=== PATIENT | female | born 2000 | race Caucasian/White ===

== ENCOUNTER 2022-03-19 13:30 | Emergency (ER) | payer OTHER ==
[2022-03-19] MEDS ORDERED: Dexamethasone 10 MG/ML VIAL ONE (16:21)
== END 2022-03-19 16:27 | disposition home or self-care (01) ==
LOC: CSHERS 13:30
DX: J01.90 Acute sinusitis, unspecified (principal); J02.9 Acute pharyngitis, unspecified
CPT/HCPCS: 99283; J1100